=== PATIENT | female | born 1945 | race Caucasian/White ===

== ENCOUNTER → 2017-03-16 | Outpatient (CLI) | payer MEDICARE, OTHER ==
--- NOTE | 2017-03-16 14:28 | REPMRS ---
Patient History The patient states she had a clinical breast exam in 02/19 No known family history of cancer. Reductions of both breasts, 2004. Took hormonal contraceptives for 10 years. Took estrogen for 15 years. Digital Woman Screen Mammo: March 16, 2017 - Exam #: [id number] Bilateral CC and MLO view(s) were taken. Technologist: Lindy Larry, Technologist Prior study comparison: April 16, 2015, digital woman screen mammo performed at [facility]. April 09, 2014, bilateral bilat screen digital mammo, performed at [facility] ([facility]). March 28, 2013, bilateral bilat screen digital mammo, performed at [facility] ([facility]). FINDINGS: There are scattered fibroglandular densities. There has been no change in the appearance of the mammogram from the prior studies. There is a mild amount of scattered fibroglandular density which is fairly symmetric. There is no interval development of dominant mass, architectural distortion, or clustered microcalcification suggestive of malignancy. ASSESSMENT: BI-RADS/ACR category 1 mammogram. Negative. Recommendation Routine screening mammogram in 1 year (for women over age 40). This mammogram was interpreted with the aid of an FDA-approved computer-aided dectection system. Electronically Signed By: Shabbir Blackburn MD 03/16/17 [id number]
== END ==
LOC: M WHC 13:59
PROVIDERS: ATTEND Obstetrics & Gynecology
DX: Z12.31 Encounter for screening mammogram for malignant neoplasm of breast (principal); Z13.820 Encounter for screening for osteoporosis; Z92.23 Personal history of estrogen therapy; Z92.0 Personal history of contraception

== ENCOUNTER → 2017-04-17 | Outpatient (CLI) | payer MEDICARE, OTHER ==
--- NOTE | 2017-04-19 13:45 | DEXA ---
AP SPINE L1 - L4 1.208 0.1 1.8 LT FEMUR TOTAL 0.903 -0.8 0.7 RT FEMUR TOTAL 0.893 -0.9 0.6 TOTAL BODY TOTAL OTHER DUAL FEMUR FRAX* ASSESSMENT Risk factors: 10 year probability of fracture Major osteoporotic fracture % Hip fracture % COMMENTS: Normal bone densitometry of the spine. There is low bone density of the hips. The increased density of the spine does represent a significant change. The decreased density of the left hip does not represent a significant change. The increased density of the right hip does not represent a significant change. The density of the spine has decreased 1.7% since the initial exam on 2000. The spine density has increased 4.6% since the most recent exam on 04/16/2015. The density of the left hip has decreased 2.0% since the initial exam on 2000. The density of the left hip has decreased 0.8% since the most recent exam on 05/2015. The density of the right hip has increased 1.1% since the initial exam on 2000. The density of the right hip has increased 1.8% since the most recent exam on . FOLLOW-UP: Recommendation for the next bone density exam: 2 years. REGINALDO
== END ==
LOC: M WHC 13:52
PROVIDERS: ATTEND Obstetrics & Gynecology
DX: Z13.820 Encounter for screening for osteoporosis (principal)

== ENCOUNTER → 2018-02-13 | Outpatient (REF) | payer MEDICARE, OTHER | LOC: M SFHCLERA 09:26 | DX: R30.0 Dysuria (principal) | CPT/HCPCS: 87086 ==

== ENCOUNTER → 2018-03-20 | Outpatient (CLI) | payer MEDICARE, OTHER | LOC: M WHC 10:36 | DX: Z12.31 Encounter for screening mammogram for malignant neoplasm of breast (principal); Z92.89 Personal history of other medical treatment; Z92.0 Personal history of contraception; Z92.23 Personal history of estrogen therapy; Z80.0 Family history of malignant neoplasm of digestive organs | CPT/HCPCS: 77067 ==

== ENCOUNTER 2018-04-19 11:29 | Day surgery (SDC) | payer MEDICARE, OTHER ==
[~2018-04-19 11:29] MED LIST: LIDOCAINE 2% INJ 100 MG/5 ML SDV (FOR ANES.) As Ordered; PROPOFOL 200 MG/20 ML VIAL As Ordered
[2018-04-19] MEDS: NS 1,000 ML IV (11:45)
== END 2018-04-19 13:28 | disposition home or self-care (01) ==
LOC: M OPP 11:29
DX: Z12.11 Encounter for screening for malignant neoplasm of colon (principal); K57.30 Diverticulosis of large intestine without perforation or abscess without bleeding; K29.60 Other gastritis without bleeding; Z80.0 Family history of malignant neoplasm of digestive organs; I10 Essential (primary) hypertension; E78.00 Pure hypercholesterolemia, unspecified; F41.9 Anxiety disorder, unspecified; F32.9 Major depressive disorder, single episode, unspecified; Z79.899 Other long term (current) drug therapy; Z88.0 Allergy status to penicillin; Z91.89 Other specified personal risk factors, not elsewhere classified; Z87.19 Personal history of other diseases of the digestive system; Z86.39 Personal history of other endocrine, nutritional and metabolic disease; Z90.710 Acquired absence of both cervix and uterus
CPT/HCPCS: G0105